=== PATIENT | female | born 2005 | race Caucasian/White ===

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

== ENCOUNTER → 2023-05-17 | Outpatient (CLI) | payer OTHER | LOC: LAB SHORT 13:53 → LAB 13:53 | DX: N39.0 Urinary tract infection, site not specified (principal) | CPT/HCPCS: 87086 ==

== ENCOUNTER → 2023-05-18 | Outpatient (CLI) | payer OTHER | LOC: LAB SHORT 12:20 → LAB 12:20 | DX: Z32.02 Encounter for pregnancy test, result negative (principal) | CPT/HCPCS: 84702 ==

== ENCOUNTER → 2023-10-03 | Outpatient (CLI) | payer OTHER ==
[2023-10-04 12:45] LABS: Candida species (DNA Probe) Negative (NEGATIVE); G. vaginalis (DNA Probe) Positive (NEGATIVE); T. vaginalis (DNA Probe) Negative (NEGATIVE)
== END | disposition home or self-care (01) ==
LOC: LAB 16:50 → LAB SHORT 16:50
PROVIDERS: Obstetrics & Gynecology
DX: Z11.3 Encounter for screening for infections with a predominantly sexual mode of transmission (principal); N76.0 Acute vaginitis
CPT/HCPCS: 87480; 87510; 87660

== ENCOUNTER → 2023-12-01 | Outpatient (CLI) | payer OTHER ==
[2023-12-01 17:21] LABS: Source, Urine Clean Catch
[2023-12-01 19:04] LABS: Bilirubin, Urine Neg (Neg); Blood, Urine Neg (Neg); Glucose Qualitative, Urine Neg (Neg); Ketones, Urine Neg (Neg); Leukocyte Esterase, Urine 1+ (Neg); Nitrite, Urine Neg (Neg); Protein, Urine Neg (Neg); Urobilinogen, Urine NORM (Normal)
[2023-12-01 19:18] LABS: Appearance, Urine Hazy (Clear); Color, Urine Pale Yellow (P-Yellow); Red Blood Cells, Urine 0-2 /hpf (0-2); White Blood Cells, Urine 0-2 /hpf (0-5)
[2023-12-01 19:19] LABS: Amorphous Light (0-Heavy); Bacteria Many /hpf; Squamous Epithelial Cells Few /hpf (Few)
== END | disposition home or self-care (01) ==
LOC: LAB SHORT 15:51 → LAB 15:51
PROVIDERS: Obstetrics & Gynecology
DX: Z32.00 Encounter for pregnancy test, result unknown (principal)
CPT/HCPCS: 81001; 84702; 87086

== ENCOUNTER 2023-12-12 12:57 | Day surgery (SDC) | payer OTHER ==
[~2023-12-12] VITALS: Ht 160 cm; Wt 63.6 kg
[~2023-12-12 12:57] MED LIST changes: +Dexamethasone Sod Phos 10 MG/ML 1ML VIAL ONE; +FentaNYL Citrate 50 MCG/ML 2 ML Injection ONE; +Ketorolac Tromethamine 30mg Vial ONE; +Ondansetron HCl 2 MG / ML 2ML Vial ONE; +Rocuronium Bromide 10 MG/ML 5ML Injection IV ONE; +propofoL 20 ML IV ONE
[2023-12-12] MEDS ORDERED: TOPI50 (13:33)
[2023-12-12] MEDS ORDERED: Midazolam HCl 1MG / ML 2ML Vial ONE (13:42)
[2023-12-12] MEDS ORDERED: Lactated Ringer's 1,000 ML IV ONE (13:48)
[2023-12-12] MEDS ORDERED: propofoL 20 ML IV ONE (14:00)
--- NOTE | 2023-12-12 14:15 | NUR ---
12/12/23 1415 Sanchez Levi IV INFILTRATED IN OR. NEW IV PLACED BY RN IN RIGHT FOREARM. PT TOLERATED WELL.
[2023-12-12] MEDS ORDERED: Ropivacaine 0.5% HCl/Pf 5 MG/ML 20ML VIAL INJ ONE (14:17)
[2023-12-12] MEDS ORDERED: EPINEPhrine HCl 1 MG/ML 1ML Amp XX ONE (14:17)
[2023-12-12] MEDS ORDERED: Sugammadex Sodium 200 MG/2ML SDV (100 MG/ML) ONE (14:19)
[2023-12-12] MEDS ORDERED: FentaNYL Citrate 50 MCG/ML 2 ML Injection ONE (14:19)
[2023-12-12 15:20] VITALS: BP 113/69
--- NOTE | 2023-12-12 15:40 | NUR ---
12/12/23 1540 DIANA MORENO IV LEFT AC INFILTRATED IN OR PER DR THAO. NEW IV STARTED IN OR RIGHT FOREARM 22G. WARM PACK PUT ON LEFT FORARM. PT DENIES PAIN IN ARM. PT UP TO BATHROOM TO VOID URINE PER DR DELUCA PRIOR TO DC.
== END 2023-12-12 15:49 | disposition home or self-care (01) ==
LOC: ORSCSDS 12:57
PROVIDERS: Obstetrics & Gynecology
PROC: 0UBF4ZX Excision of Cul-de-sac, Percutaneous Endoscopic Approach, Diagnostic (ICD-10-PCS; principal; 2023-12-12 14:45)
DX: N94.6 Dysmenorrhea, unspecified (principal); N80.9 Endometriosis, unspecified; J45.909 Unspecified asthma, uncomplicated; F41.9 Anxiety disorder, unspecified; F32.A Depression, unspecified; Z79.899 Other long term (current) drug therapy
CPT/HCPCS: 88305; J0171; J1100; J1885; J2250; J2405; J2704; J2795; J3010

== ENCOUNTER 2024-04-18 15:48 | Emergency (ER) | payer OTHER ==
[~2024-04-18] VITALS: Ht 160 cm; Wt 68.0 kg
[~2024-04-18 15:48] MED LIST changes: -Dexamethasone Sod Phos 10 MG/ML 1ML VIAL ONE; -FentaNYL Citrate 50 MCG/ML 2 ML Injection ONE; -Ketorolac Tromethamine 30mg Vial ONE; -Ondansetron HCl 2 MG / ML 2ML Vial ONE; -Rocuronium Bromide 10 MG/ML 5ML Injection IV ONE; +TOPI50; -propofoL 20 ML IV ONE
[2024-04-18 16:06] VITALS: BP 135/88
[2024-04-18] MEDS ORDERED: DiphenhydrAMINE HCl 50 MG/ML 1ML Vial IV ONE (17:10)
[2024-04-18] MEDS ORDERED: Ketorolac Tromethamine 30mg Vial IV ONE (17:10)
[2024-04-18] MEDS ORDERED: Prochlorperazine Edisylate 10 mg Vial IV ONE (17:10)
[2024-04-18] MEDS ORDERED: NS 1,000 ML IV SCH (17:10)
[2024-04-18] MEDS ORDERED: Ketorolac Tromethamine 30mg Vial IM ONE (17:55)
[2024-04-18] MEDS ORDERED: PROZAC2010 PO (17:59)
[2024-04-18] MEDS ORDERED: MONT10T PO (17:59)
[2024-04-18] MEDS ORDERED: TOPI100 PO (17:59)
== END 2024-04-18 19:04 | disposition home or self-care (01) ==
LOC: ER 15:48
DX: G43.909 Migraine, unspecified, not intractable, without status migrainosus (principal); J45.909 Unspecified asthma, uncomplicated; Z79.899 Other long term (current) drug therapy; Z88.7 Allergy status to serum and vaccine
CPT/HCPCS: 71046; 93005; 93010; 96372; 99285-25; J0780; J1200; J1885; J7030

== ENCOUNTER 2024-05-20 21:52 | Emergency (ER) | payer OTHER ==
[~2024-05-20] VITALS: Ht 160 cm; Wt 70.8 kg
[~2024-05-20 21:52] MED LIST changes: +MONT10T PO; +PROZAC2010 PO; +TOPI100 PO
[2024-05-20 22:05] VITALS: BP 133/83
[2024-05-20] MEDS ORDERED: Mupirocin 2% Ointment 22 GM TOP ONE (22:25)
== END 2024-05-20 22:35 | disposition home or self-care (01) ==
LOC: ER 21:52
DX: S81.802A Unspecified open wound, left lower leg, initial encounter (principal); W27.8XXA Contact with other nonpowered hand tool, initial encounter; Z88.7 Allergy status to serum and vaccine; Z79.899 Other long term (current) drug therapy
CPT/HCPCS: 99282; A9270

== ENCOUNTER → 2024-05-21 | Outpatient (CLI) | payer OTHER ==
[2024-05-21 19:55] LABS: Bacterial Vaginosis PCR Negative (NEGATIVE); Candida Group, PCR NOT DETECTED (NOT DETECT); Candida glabrata-krusei, PCR NOT DETECTED (NOT DETECT)
== END ==
LOC: LAB 15:58 → LAB SHORT 15:58
PROVIDERS: Chiropractor
DX: R10.2 Pelvic and perineal pain (principal)
CPT/HCPCS: 87481; 87661; 87801

== ENCOUNTER → 2024-05-24 | Outpatient (CLI) | payer OTHER | LOC: LAB SHORT 13:36 → LAB 13:36 | DX: R30.0 Dysuria (principal) | CPT/HCPCS: 87086 ==

== ENCOUNTER → 2024-06-21 | Outpatient (CLI) | payer OTHER | END | disposition home or self-care (01) | LOC: LAB 13:47 → LAB SHORT 13:47 | PROVIDERS: Obstetrics & Gynecology | DX: Z01.419 Encounter for gynecological examination (general) (routine) without abnormal findings (principal) | CPT/HCPCS: G0123 ==

== ENCOUNTER → 2024-08-10 | Outpatient (CLI) | payer OTHER | LOC: LAB SHORT 13:06 → LAB 13:06 | DX: N39.0 Urinary tract infection, site not specified (principal) | CPT/HCPCS: 87086 ==

== ENCOUNTER → 2024-10-13 | Outpatient (CLI) | payer OTHER | LOC: LAB SHORT 13:38 → LAB 13:38 | DX: J02.9 Acute pharyngitis, unspecified (principal) | CPT/HCPCS: 87081 ==

== ENCOUNTER → 2025-05-20 | Outpatient (CLI) | payer OTHER ==
[~2025-05-20] MED LIST changes: +Cleocin HCl150 MG PO
[2025-05-21 15:19] LABS: U Amphetamine Screen Not Detected; U Barbituate Screen Not Detected; U Benzodiazapine Screen Not Detected; U Buprenorphine Screen Not Detected; U Cannabinoids Screen Not Detected; U Cocaine Screen Not Detected; U Methadone Screen Not Detected; U Methamphetamine Screen Not Detected; U Opiates Screen Not Detected; U Oxycodone Screen Not Detected; U Phencyclidine Screen Not Detected
== END | disposition home or self-care (01) ==
LOC: LAB SHORT 14:00 → LAB 14:00
PROVIDERS: Internal Medicine Critical Care Medicine
DX: R40.0 Somnolence (principal)

== ENCOUNTER → 2025-08-02 | Outpatient (CLI) | payer OTHER ==
[2025-08-03 07:56] LABS: Candida Group, PCR NOT DETECTED (NOT DETECT); Candida glabrata-krusei, PCR NOT DETECTED (NOT DETECT)
[2025-08-03 08:24] LABS: Bacterial Vaginosis PCR Positive (NEGATIVE)
[2025-08-05 14:54] LABS: APTIMA MEDIA TYPE Unisex Swab; C. TRACHOMATIS BY TMA Negative (Negative); N. GONORRHOEAE BY TMA Negative (Negative)
== END ==
LOC: LAB SHORT 11:34 → LAB 11:34
PROVIDERS: Physician Assistant
DX: N76.0 Acute vaginitis (principal)
CPT/HCPCS: 81515; 87086; 87491; 87591